=== PATIENT | female | born 1940 | race Caucasian/White ===

== ENCOUNTER → 2016-12-08 | Outpatient (CLI) | payer OTHER, BC ==
--- NOTE | 2016-12-08 16:55 | DX ---
Right Calcaneus, 2 weightbearing views HISTORY: Pain without trauma x1 month, M79.675 COMPARISON: None FINDINGS: There is a prominent plantar calcaneal spur. The subtalar joint looks normal. Mineralizatio n is normal. IMPRESSION: Plantar calcaneal spur.
== END ==
LOC: BMCIMAGING 11:45
PROVIDERS: ATTEND Podiatrist Foot & Ankle Surgery
DX: M77.31 Calcaneal spur, right foot (principal)